=== PATIENT | female | born 1975 | race Caucasian/White ===

== ENCOUNTER 2020-08-26 22:54 | Inpatient (IN) | payer BC, OTHER ==
[~2020-08-26] VITALS: Ht 162.6 cm; Wt 51.3 kg
[2020-08-26] MEDS ORDERED: HYDROcodone/APAP 5/325 TABLET ONE (23:20)
--- NOTE | 2020-08-26 23:29 | NUR ---
Medicated for pain, waiting for CT.
[2020-08-26] MEDS ORDERED: HYDROcodone/APAP 5/325 TABLET PO ONE (23:30)
--- NOTE | 2020-08-27 00:47 | NUR ---
Back from CT. [place] did not help much for pain; pt driving.
[2020-08-27] MEDS ORDERED: OMNIPAQUE 350 MG/ML, 75ML BOTTLE ONE (00:55)
[2020-08-27] MEDS ORDERED: MORPHINE SULFATE 4 MG/ML, 1ML ONE (01:53)
[2020-08-27] MEDS ORDERED: CLINDAMYCIN PMX 600MG/50ML 50 ML ONE (01:55)
[2020-08-27] MEDS ORDERED: CLINDAMYCIN PMX 300MG/50ML 50 ML IV ONE (02:00)
[2020-08-27] MEDS ORDERED: MORPHINE SULFATE 4 MG/ML, 1ML IVPush PRN (02:00)
--- NOTE | 2020-08-27 02:09 | NUR ---
Pt to be admitted, for facial abscess. BC x1 drawn by this rn. Lab to draw 2nd. Pt medicated for pain with morphine IV. VSS. POC: start clinda when 2nd set bc drawn by lab.
--- NOTE | 2020-08-27 02:22 | NUR ---
Previous note by this Rn, not Sharmaine.
--- NOTE | 2020-08-27 02:25 | NUR ---
Verbal order Dr Villegas to change clindamycin from 300mg IV to 600mg IV.
[2020-08-27] MEDS ORDERED: FEXO1TAB29 PO (02:35)
--- NOTE | 2020-08-27 02:35 | NUR ---
2nd set BC drawn by lab. IV abx clinda 600mg started. Pt updated re: process of admission. Med rec completed. Waiting for med/surg bed.
[2020-08-27 02:44] LABS: BASOPHILS % (AUTO) 1 % (0-1); EOSINOPHILS % (AUTO) 0 % (1-7); LYMPHOCYTES % (AUTO) 23 % (22-44); MEAN CORPUSCULAR HEMOGLOBIN 35.8 pg (27.0-34.8); MEAN CORPUSCULAR HGB CONC 34.7 g/dL (32.4-35.8); MEAN PLATELET VOLUME 8.7 fL (7.4-10.4); MONOCYTES % (AUTO) 7 % (2-9); NEUTROPHILS % (AUTO) 69 % (42-75); PLATELET COUNT 250 x10^3/uL (130-400); RED BLOOD COUNT 3.87 x10^6/uL (3.82-5.3); RED CELL DISTRIBUTION WIDTH 13.7 % (9.6-15.2)
[2020-08-27 02:47] LABS: MD MORPH REVIEW ONLY
[2020-08-27 02:48] LABS: <PLATELET ESTIMATE> ADEQUATE; <PLT MORPHOLOGY> NORMAL PLT MORPH
[2020-08-27 02:51] LABS: CHLORIDE 106 mmol/L (98-107)
[2020-08-27 02:52] LABS: ALBUMIN 3.8 g/dL (3.4-5.0); ANION GAP 8 mmol/L (5-15); CALCIUM 8.9 mg/dL (8.5-10.1); CREATININE 0.53 mg/dL (0.55-1.02)
[2020-08-27] MEDS ORDERED: CLINDAMYCIN PMX 600MG/50ML 50 ML IV ONE (03:00)
[2020-08-27 03:45] VITALS: BP 130/84
[2020-08-27] MEDS ORDERED: ACETAMINOPHEN 325 MG TABLET PO PRN (04:00)
[2020-08-27] MEDS ORDERED: [UNRECOGNIZED DRUG - OTHER] HOMEMEDPO PRN (04:00)
[2020-08-27] MEDS ORDERED: ONDANSETRON 2MG/ML, 2ML IVPush PRN (04:00)
[2020-08-27] MEDS ORDERED: PROMETHAZINE 25 MG/ML, 1ML IM PRN (04:00)
[2020-08-27] MEDS ORDERED: hydrALAzine 20 MG/ML, 1ML IVPush PRN (04:00)
[2020-08-27] MEDS ORDERED: DOCUSATE 100 MG CAPSULE PO PRN (04:00)
[2020-08-27] MEDS ORDERED: POLYETHYLENE GLYCOL 17 GM PACKET PO PRN (04:00)
[2020-08-27] MEDS ORDERED: FEXOFENADINE HOMEMEDPO PRN (04:00)
[2020-08-27] MEDS ORDERED: ONDANSETRON ODT 4 MG PO PRN (04:00)
[2020-08-27] MEDS ORDERED: BISACODYL 10 MG SUPP PR PRN (04:00)
[2020-08-27] MEDS: NICOTINE 14MG/24 HR PATCH.TD24 TD SCH (04:14)
[2020-08-27 04:31] LABS: FREE T4 (FREE THYROXINE) 0.8 ng/dL (0.76-1.46)
[2020-08-27] MEDS: D5%-0.45% NACL 1,000 ML IV SCH ×2 (04:36→13:00)
[2020-08-27] MEDS: METRONIDAZOLE PMX 500MG/100ML 100 ML IV SCH ×3 (04:36→19:53)
[2020-08-27 06:50] VITALS: BP 115/77
[2020-08-27] MEDS: CLINDAMYCIN PMX 600MG/50ML 50 ML IV SCH ×2 (08:16→16:01)
[2020-08-27 12:47] VITALS: BP 99/66
[2020-08-27] MEDS: D5%-LACTATED RINGERS 1,000 ML IV SCH (16:00)
[2020-08-27 19:55] VITALS: BP 121/81
[2020-08-28] MEDS: CLINDAMYCIN PMX 600MG/50ML 50 ML IV SCH ×3 (00:08→16:42)
[2020-08-28 00:32] LABS: HCG UR SG 1.008 (1.003-1.030)
[2020-08-28 02:17] VITALS: BP 105/71
[2020-08-28] MEDS: METRONIDAZOLE PMX 500MG/100ML 100 ML IV SCH ×3 (04:01→20:04)
[2020-08-28] MEDS: NICOTINE 14MG/24 HR PATCH.TD24 TD SCH (04:01)
[2020-08-28 05:27] LABS: BASOPHILS % (AUTO) 1 % (0-1); EOSINOPHILS % (AUTO) 2 % (1-7); LYMPHOCYTES % (AUTO) 33 % (22-44); MEAN CORPUSCULAR HEMOGLOBIN 35.4 pg (27.0-34.8); MEAN PLATELET VOLUME 8.7 fL (7.4-10.4); MONOCYTES % (AUTO) 13 % (2-9); NEUTROPHILS % (AUTO) 52 % (42-75); PLATELET COUNT 225 x10^3/uL (130-400); RED BLOOD COUNT 3.64 x10^6/uL (3.82-5.3); RED CELL DISTRIBUTION WIDTH 13.8 % (9.6-15.2)
[2020-08-28 05:33] LABS: MD NO
[2020-08-28 05:40] LABS: ALANINE AMINOTRANSFERASE 29 U/L (12-78); ALBUMIN 2.8 g/dL (3.4-5.0); ANION GAP 3 mmol/L (5-15); CALCIUM 8.2 mg/dL (8.5-10.1); CHLORIDE 112 mmol/L (98-107)
[2020-08-28 05:43] LABS: ALKALINE PHOSPHATASE 47 U/L (45-117); BILIRUBIN,TOTAL 0.2 mg/dL (0.2-1.0); CHOL/HDL RATIO 1.1; CHOLESTEROL, TOTAL 139 mg/dL (140-239); CREATININE 0.46 mg/dL (0.55-1.02); HDL CHOL % 91 % (28-40); HDL CHOLESTEROL (DIRECT) 126 mg/dL (40-60); LDL CHOLESTEROL,CALCULATED 6 mg/dL (54-169); TOTAL PROTEIN 5.7 g/dL (6.4-8.2); TRIGLYCERIDES 34 mg/dL (50-200); VLDL CHOLESTEROL 7 mg/dL (0-25)
[2020-08-28] MEDS ORDERED: EPINEPHRINE 1 MG/ML, 1ML ONE (07:47)
[2020-08-28] MEDS ORDERED: LIDOCAINE 1%, 20ML ONE (07:48)
[2020-08-28 07:55] VITALS: BP 119/81
[2020-08-28] MEDS ORDERED: MIDAZOLAM 1 MG/ML, 2ML ONE (09:16)
[2020-08-28] MEDS ORDERED: ONDANSETRON 2MG/ML, 2ML ONE (09:18)
[2020-08-28] MEDS ORDERED: SUCCINYLCHOLINE 20 MG/ML, 10ML ONE (09:18)
[2020-08-28] MEDS ORDERED: PROPOFOL 10 MG/ML, 20ML ONE (09:18)
[2020-08-28] MEDS ORDERED: LIDOCAINE 1%-EPI 1:100K, 20ML INFIL ONE (09:34)
[2020-08-28] MEDS ORDERED: FENTANYL PF 100 MCG/2ML IV PRN (10:00)
[2020-08-28] MEDS ORDERED: LABETALOL 5MG/ML, 20ML IV PRN (10:00)
[2020-08-28] MEDS ORDERED: PROMETHAZINE 25 MG/ML, 1ML IV PRN (10:00)
[2020-08-28] MEDS ORDERED: MEPERIDINE/PF 25MG/0.5ML IVPush PRN (10:00)
[2020-08-28] MEDS ORDERED: HYDROmorphone 1 MG/ML, 1ML INJ IV PRN (10:00)
[2020-08-28] MEDS ORDERED: ALBUTEROL SULFATE 2.5 MG/3 ML NPPB PRN (10:00)
[2020-08-28] MEDS ORDERED: ONDANSETRON 2MG/ML, 2ML IVPush PRN (10:00)
[2020-08-28] MEDS ORDERED: OXYcodone 5 MG/5 ML ORAL.SOL UDC PO PRN (10:00)
[2020-08-28] MEDS ORDERED: KETOROLAC 30 MG/1 ML IV PRN (10:00)
[2020-08-28] MEDS ORDERED: DIAZEPAM 5 MG/ML, 2ML IV PRN ×2 (10:00)
[2020-08-28] MEDS ORDERED: hydrALAzine 20 MG/ML, 1ML IV PRN (10:00)
[2020-08-28] MEDS ORDERED: METOCLOPRAMIDE 5 MG/ML, 2ML IV PRN (10:00)
[2020-08-28] MEDS ORDERED: FENTANYL PF 100 MCG/2ML ONE ×2 (10:05→10:09)
[2020-08-28] MEDS ORDERED: OXYcodone 5 MG/5 ML ORAL.SOL UDC ONE (10:18)
[2020-08-28] MEDS ORDERED: HYDROmorphone 1 MG/ML, 1ML INJ ONE (10:26)
[2020-08-28] MEDS: CHLORHEXIDINE 15 ML UDC MM SCH ×2 (13:30→17:37)
[2020-08-28 14:13] VITALS: BP 110/73
[2020-08-28] MEDS: D5%-LACTATED RINGERS 1,000 ML IV SCH (20:05)
[2020-08-28 21:08] VITALS: BP 120/74
[2020-08-29] MEDS: CHLORHEXIDINE 15 ML UDC MM SCH ×4 (00:07→22:04)
[2020-08-29] MEDS: CLINDAMYCIN PMX 600MG/50ML 50 ML IV SCH ×2 (00:07→08:31)
[2020-08-29 00:24] VITALS: BP 114/71
[2020-08-29] MEDS: METRONIDAZOLE PMX 500MG/100ML 100 ML IV SCH (04:24)
[2020-08-29 04:32] VITALS: BP 134/80
[2020-08-29 05:01] LABS: BASOPHILS % (AUTO) 1 % (0-1); EOSINOPHILS % (AUTO) 2 % (1-7); LYMPHOCYTES % (AUTO) 35 % (22-44); MEAN CORPUSCULAR HEMOGLOBIN 35.6 pg (27.0-34.8); MEAN CORPUSCULAR HGB CONC 33.9 g/dL (32.4-35.8); MEAN PLATELET VOLUME 8.9 fL (7.4-10.4); MONOCYTES % (AUTO) 14 % (2-9); NEUTROPHILS % (AUTO) 48 % (42-75); PLATELET COUNT 220 x10^3/uL (130-400); RED BLOOD COUNT 3.27 x10^6/uL (3.82-5.3); RED CELL DISTRIBUTION WIDTH 13.5 % (9.6-15.2)
[2020-08-29 05:10] LABS: MD NO
[2020-08-29 05:11] LABS: CALCIUM 8.3 mg/dL (8.5-10.1); CREATININE 0.49 mg/dL (0.55-1.02)
[2020-08-29 05:21] LABS: ANION GAP 3 mmol/L (5-15); CHLORIDE 112 mmol/L (98-107)
[2020-08-29 07:22] VITALS: BP 127/79
[2020-08-29] MEDS: NICOTINE 14MG/24 HR PATCH.TD24 TD SCH (08:30)
[2020-08-29] MEDS: D5%-LACTATED RINGERS 1,000 ML IV SCH (12:10)
[2020-08-29] MEDS: ERTAPENEM 1 GM in SODIUM CHLORIDE 0.9% 50 ML IV SCH (13:43)
[2020-08-29 13:49] VITALS: BP 133/83
[2020-08-29 19:43] VITALS: BP 127/83
[2020-08-30 00:11] VITALS: BP 111/71
[2020-08-30] MEDS: D5%-LACTATED RINGERS 1,000 ML IV SCH ×2 (04:20→21:00)
[2020-08-30 05:15] LABS: HCT (SEDRATE) 38.6 % (34.6-47.8)
[2020-08-30 05:23] LABS: BASOPHILS % (AUTO) 1 % (0-1); EOSINOPHILS % (AUTO) 3 % (1-7); LYMPHOCYTES % (AUTO) 42 % (22-44); MEAN CORPUSCULAR HEMOGLOBIN 35.6 pg (27.0-34.8); MEAN CORPUSCULAR HGB CONC 34.3 g/dL (32.4-35.8); MEAN PLATELET VOLUME 8.6 fL (7.4-10.4); MONOCYTES % (AUTO) 13 % (2-9); NEUTROPHILS % (AUTO) 41 % (42-75); PLATELET COUNT 252 x10^3/uL (130-400); RED BLOOD COUNT 3.69 x10^6/uL (3.82-5.3); RED CELL DISTRIBUTION WIDTH 13.4 % (9.6-15.2)
[2020-08-30 05:26] LABS: MD NO
[2020-08-30 05:31] LABS: CHLORIDE 110 mmol/L (98-107)
[2020-08-30 05:48] LABS: ALANINE AMINOTRANSFERASE 44 U/L (12-78); ALKALINE PHOSPHATASE 61 U/L (45-117); ANION GAP 3 mmol/L (5-15); BILIRUBIN,TOTAL 0.2 mg/dL (0.2-1.0); CALCIUM 8.7 mg/dL (8.5-10.1); CREATININE 0.48 mg/dL (0.55-1.02); TOTAL PROTEIN 6.2 g/dL (6.4-8.2)
[2020-08-30 07:25] VITALS: BP 119/82
[2020-08-30] MEDS: CHLORHEXIDINE 15 ML UDC MM SCH ×3 (09:10→21:15)
[2020-08-30] MEDS: NICOTINE 14MG/24 HR PATCH.TD24 TD SCH (09:12)
[2020-08-30 13:27] VITALS: BP 116/74
[2020-08-30] MEDS: ERTAPENEM 1 GM in SODIUM CHLORIDE 0.9% 50 ML IV SCH (14:34)
[2020-08-30 18:59] VITALS: BP 114/74
[2020-08-31 01:55] VITALS: BP 122/81
[2020-08-31 07:21] VITALS: BP 124/79
[2020-08-31] MEDS: CHLORHEXIDINE 15 ML UDC MM SCH (08:28)
[2020-08-31] MEDS: NICOTINE 14MG/24 HR PATCH.TD24 TD SCH (08:30)
[2020-08-31] MEDS: D5%-LACTATED RINGERS 1,000 ML IV SCH (13:40)
[2020-08-31 13:51] VITALS: BP 130/89
[2020-08-31] MEDS ORDERED: HYDR-3241 PO (13:53)
[2020-08-31] MEDS ORDERED: ACET325T26 PO (13:53)
[2020-08-31] MEDS ORDERED: CHLO473M MM (13:53)
[2020-08-31] MEDS ORDERED: ERTA1VIA IV (13:53)
[2020-08-31] MEDS: ERTAPENEM 1 GM in SODIUM CHLORIDE 0.9% 50 ML IV SCH (14:15)
== END 2020-08-31 15:43 | disposition home or self-care (01) | DRG 158 ==
LOC: ED 08-27 02:51 → EDIP 08-27 02:55 → 4NE 08-27 03:39 → DCLOUNGE 08-31 15:30
PROVIDERS: ADMIT Internal Medicine; ATTEND Internal Medicine
PROC: 0CDWXZ1 Extraction of Upper Tooth, Multiple, External Approach (ICD-10-PCS; principal; 2020-08-28 09:00)
PROC: 02HV33Z Insertion of Infusion Device into Superior Vena Cava, Percutaneous Approach (ICD-10-PCS; 2020-08-30)
PROC: B5181ZA Fluoroscopy of Superior Vena Cava using Low Osmolar Contrast, Guidance (ICD-10-PCS; 2020-08-30)
PROC: B548ZZA Ultrasonography of Superior Vena Cava, Guidance (ICD-10-PCS; 2020-08-30)
DX: S02.5XXA Fracture of tooth (traumatic), initial encounter for closed fracture (principal); L02.01 Cutaneous abscess of face; L03.211 Cellulitis of face; K04.7 Periapical abscess without sinus; K02.9 Dental caries, unspecified; K05.6 Periodontal disease, unspecified; F17.210 Nicotine dependence, cigarettes, uncomplicated; K04.8 Radicular cyst; W18.39XA Other fall on same level, initial encounter; Y93.89 Activity, other specified; Y92.89 Other specified places as the place of occurrence of the external cause; Y99.8 Other external cause status
CPT/HCPCS: 36415; 96374; 99285; J3490; J7121; 36573; 70487; 80048; 80053; 80061; 81025; 82040; 83036; 83735; 84439; 84443; 85025; 85651; 86140; 87040; 87635; 93005; 99406; G0378; J0171; J1170; J1335; J2250; J2405; J2704; J3010; Q9967; C1751; J0330; J2270